=== PATIENT | male | born 1945 | race Hispanic/Latino ===

== ENCOUNTER 2020-02-26 08:54 | Inpatient (IN) | payer MEDICARE ==
[~2020-02-26] VITALS: Ht 175.3 cm; Wt 90.9 kg
[~2020-02-26 08:54] MED LIST: ACET1TAB25 PO; ACET325C6 PO; AEC81 PO; ALPR0.5T8 PO; CARB1TAB20 PO; FLUO90CA4 PO; FURO20TA4 PO; LACT10SO9 PO; MEMA10TA55 PO; METF-444 PO; METO50TA18 PO; PANT40TA54 PO; RISP0.5T19 PO; SENN8.6T32 PO; TAMS0.4C32 PO
[2020-02-26 09:25] LABS: BASOPHILS % (AUTO) 0.2 % (0.0-5.0); EOSINOPHILS % (AUTO) 0.2 % (0.0-8.0); HEMATOCRIT 36.5 % (42-54); LYMPHOCYTES % (AUTO) 5.7 % (21.0-51.0); MEAN CORPUSCULAR HEMOGLOBIN 27.9 pg (27.0-33.0); MEAN CORPUSCULAR HGB CONC 35.9 g/dL (32.0-36.0); MEAN CORPUSCULAR VOLUME 77.7 fL (79-99); MONOCYTES % (AUTO) 9.1 % (3.0-13.0); NEUTROPHILS % (AUTO) 84.4 % (40.0-77.0); PLATELET COUNT (AUTO) 219 K/uL (130-400); RED CELL DISTRIBUTION WIDTH 13.2 % (11.0-15.5)
[2020-02-26 09:41] LABS: INR 1.07 (0.85-1.15); PARTIAL THROMBOPLASTIN TIME 30.4 SEC (26.3-35.5); PROTHROMBIN TIME 11.5 SEC (9.6-11.6)
[2020-02-26 09:49] LABS: CREATINE KINASE, TOTAL 97 U/L (21-232); MYOGLOBIN 43 ng/mL (10-92); TROPONIN I < 0.04 ng/mL (0.00-0.06)
[2020-02-26 10:08] LABS: CREATININE 0.9 mg/dL (0.5-1.5); POTASSIUM 4.3 mmol/L (3.5-5.1)
[2020-02-26 10:09] LABS: ALBUMIN 3.5 g/dL (3.5-5.0); BILIRUBIN,TOTAL 0.6 mg/dL (0.2-1.0); TOTAL PROTEIN, SERUM 7.7 g/dL (6.0-8.3)
[2020-02-26 10:12] LABS: CRP QUANTITATIVE 170.5 mg/L (0.00-9.0)
[2020-02-26] MEDS ORDERED: IOHEXOL 350 MG/ML 100ML INFUS..BTL IV ONE (11:32)
[2020-02-26] MEDS ORDERED: ACETAMINOPHEN EXTRA STRENGTH 500 MG TABLET ONE (12:39)
[2020-02-26] MEDS: LEVOFLOXACIN 500 MG/D5W 100 ML 100 ML IV SCH (18:30)
[2020-02-26] MEDS ORDERED: ERGOCALCIFEROL (VITAMIN D2) 50,000 UNIT CAPSULE ONE (18:41)
[2020-02-26] MEDS ORDERED: LEVOFLOXACIN 500 MG/D5W 100 ML 100 ML ONE (18:48)
[2020-02-26] MEDS ORDERED: ERGOCALCIFEROL (VITAMIN D2) 50,000 UNIT CAPSULE PO ONE (20:00)
[2020-02-26] MEDS: DOXYCYCLINE HYCLATE 100 MG TABLET PO SCH (21:00)
[2020-02-26] MEDS: ENOXAPARIN SODIUM 100 MG/1 ML SQ SCH (21:00)
[2020-02-26] MEDS: METHYLPREDNISOLONE SOD SUCC 40MG/ML 1ML IVP SCH (21:00)
[2020-02-26] MEDS ORDERED: DOXYCYCLINE HYCLATE 100 MG TABLET PO ONE (21:43)
[2020-02-26] MEDS ORDERED: ENOXAPARIN SODIUM 100 MG/1 ML SQ ONE (21:43)
[2020-02-26] MEDS ORDERED: METHYLPREDNISOLONE SOD SUCC 40MG/ML 1ML ONE (21:43)
[2020-02-27] MEDS ORDERED: MORPHINE SULFATE 2 MG/ML 1ML SYG ONE ×3 (00:34→23:01)
[2020-02-27 03:53] LABS: BASOPHILS % (AUTO) 0.1 % (0.0-5.0); EOSINOPHILS % (AUTO) 0.2 % (0.0-8.0); HEMATOCRIT 33.7 % (42-54); LYMPHOCYTES % (AUTO) 4.4 % (21.0-51.0); MEAN CORPUSCULAR HEMOGLOBIN 27.6 pg (27.0-33.0); MEAN CORPUSCULAR HGB CONC 35.3 g/dL (32.0-36.0); MEAN CORPUSCULAR VOLUME 78.2 fL (79-99); MONOCYTES % (AUTO) 4.3 % (3.0-13.0); NEUTROPHILS % (AUTO) 90.3 % (40.0-77.0); PLATELET COUNT (AUTO) 198 K/uL (130-400); RED BLOOD CELL COUNT(AUTO) 4.31 MIL/uL (4.50-6.20); RED CELL DISTRIBUTION WIDTH 13.4 % (11.0-15.5); WHITE BLOOD COUNT (AUTO) 10.6 K/uL (4.8-10.8)
[2020-02-27 04:07] LABS: ALBUMIN 3.1 g/dL (3.5-5.0); BILIRUBIN,TOTAL 0.7 mg/dL (0.2-1.0); CREATININE 0.8 mg/dL (0.5-1.5); TOTAL PROTEIN, SERUM 7.2 g/dL (6.0-8.3)
[2020-02-27] MEDS ORDERED: NITROGLYCERIN 0.4 MG SL TAB SL PRN (04:15)
[2020-02-27] MEDS ORDERED: METHYLPREDNISOLONE SOD SUCC 40MG/ML 1ML ONE ×3 (04:52→21:44)
[2020-02-27 05:51] LABS: CRP QUANTITATIVE 240.5 mg/L (0.00-9.0)
[2020-02-27] MEDS ORDERED: ENOXAPARIN SODIUM 100 MG/1 ML SQ ONE ×2 (09:07→21:43)
[2020-02-27] MEDS ORDERED: DOXYCYCLINE HYCLATE 100 MG TABLET PO ONE ×2 (09:08→21:43)
[2020-02-27] MEDS ORDERED: LISINOPRIL 5 MG TABLET ONE ×2 (09:08→09:09)
[2020-02-27] MEDS ORDERED: HYDROCHLOROTHIAZIDE 25 MG TABLET ONE (09:09)
[2020-02-27] MEDS ORDERED: ZINC SULFATE 220 CAPSULE ONE (09:09)
[2020-02-27] MEDS ORDERED: ASCORBIC ACID 500 MG TAB ONE (09:13)
[2020-02-27] MEDS ORDERED: ACETAMINOPHEN ELIXIR 650 MG/20.3 ML UDCUP ONE (09:19)
[2020-02-27] MEDS: ZINC SULFATE 220 CAPSULE PO SCH (12:00)
[2020-02-27] MEDS: SODIUM CHLORIDE 0.9% 1000ML 1,000 ML IV SCH (13:58)
[2020-02-27] MEDS ORDERED: LEVOFLOXACIN 500 MG/D5W 100 ML 100 ML ONE ×2 (18:22→21:43)
[2020-02-27] MEDS: LEVOFLOXACIN 500 MG/D5W 100 ML 100 ML IV SCH (18:30)
[2020-02-27] MEDS: DOXYCYCLINE HYCLATE 100 MG TABLET PO SCH (21:00)
[2020-02-27] MEDS: ENOXAPARIN SODIUM 100 MG/1 ML SQ SCH (21:00)
[2020-02-27] MEDS: METOPROLOL TARTRATE 25 MG TAB PO SCH (21:00)
[2020-02-27] MEDS ORDERED: METOPROLOL TARTRATE 25 MG TAB ONE (21:44)
[2020-02-27 22:00] VITALS: BP 134/81
[2020-02-27] MEDS ORDERED: IOHEXOL-350 75 ML VIAL IV ONE (23:19)
--- NOTE | 2020-02-27 23:40 | NUR ---
TRANSPORT PATIENT TO CT WITH TRANSPORT. PATIENT IN STABLE CONDITION; TRANSPORT WITH OXYGEN AND IV PATENT
[2020-02-28 00:30] VITALS: BP 134/79
[2020-02-28 04:00] VITALS: BP 129/77
[2020-02-28 06:50] LABS: BASOPHILS % (AUTO) 0.1 % (0.0-5.0); EOSINOPHILS % (AUTO) 0.1 % (0.0-8.0); HEMATOCRIT 34.6 % (42-54); LYMPHOCYTES % (AUTO) 3.6 % (21.0-51.0); MEAN CORPUSCULAR HEMOGLOBIN 27.6 pg (27.0-33.0); MEAN CORPUSCULAR HGB CONC 35.3 g/dL (32.0-36.0); MEAN CORPUSCULAR VOLUME 78.3 fL (79-99); MONOCYTES % (AUTO) 8.7 % (3.0-13.0); NEUTROPHILS % (AUTO) 86.7 % (40.0-77.0); PLATELET COUNT (AUTO) 271 K/uL (130-400); RED BLOOD CELL COUNT(AUTO) 4.42 MIL/uL (4.50-6.20); RED CELL DISTRIBUTION WIDTH 13.5 % (11.0-15.5); WHITE BLOOD COUNT (AUTO) 15.5 K/uL (4.8-10.8)
[2020-02-28 07:03] LABS: ALBUMIN 3.1 g/dL (3.5-5.0); BILIRUBIN,TOTAL 0.6 mg/dL (0.2-1.0); CREATININE 0.8 mg/dL (0.5-1.5); CRP QUANTITATIVE 123.4 mg/L (0.00-9.0); POTASSIUM 3.9 mmol/L (3.5-5.1); TOTAL PROTEIN, SERUM 7.2 g/dL (6.0-8.3)
[2020-02-28 07:31] VITALS: BP 144/92
[2020-02-28] MEDS: ENOXAPARIN SODIUM 100 MG/1 ML SQ SCH ×2 (09:00→20:36)
[2020-02-28] MEDS: ASCORBIC ACID 500 MG TAB PO SCH ×2 (09:00→09:32)
[2020-02-28] MEDS: DOXYCYCLINE HYCLATE 100 MG TABLET PO SCH ×2 (09:31→20:37)
[2020-02-28] MEDS: METOPROLOL TARTRATE 25 MG TAB PO SCH ×2 (09:31→20:37)
[2020-02-28] MEDS: ASPIRIN 81MG TAB.CHEW PO SCH (09:32)
[2020-02-28] MEDS: METHYLPREDNISOLONE SOD SUCC 40MG/ML 1ML IVP SCH ×4 (09:32→20:37)
[2020-02-28] MEDS: MORPHINE SULFATE 2 MG/ML 1ML SYG IV PRN ×2 (09:32→14:40)
[2020-02-28] MEDS: SODIUM CHLORIDE 0.9% 1000ML 1,000 ML IV SCH ×2 (09:58→19:58)
[2020-02-28 10:45] VITALS: BP 136/82
[2020-02-28 12:18] LABS: INR 1.03 (0.85-1.15); PARTIAL THROMBOPLASTIN TIME 32.7 SEC (26.3-35.5); PROTHROMBIN TIME 11.1 SEC (9.6-11.6)
[2020-02-28] MEDS: ZINC SULFATE 220 CAPSULE PO SCH (14:39)
[2020-02-28 16:02] VITALS: BP 140/78
--- NOTE | 2020-02-28 16:32 | NUR ---
CM NOTE/IA UNABLE TO MEET WITH PATIENT, NEXT OF KIN CALLED, JIN KENNEDY. PER SPOUSE, PATIENT LIVES WITH HER, IS SEMI INDEPENDENT WITH ADLS NEEDING HELP WITH BATHING AND DRESSING, HAS USE OF WALKER, MEDICAL POWER OF RN FORENSIC IS SON, EMETERIO KENNEDY JR AT [phone]. PER SPOUSE, PATIENT WILL NOT RETURN HOME BUT WILL BE STAYING WITH DAUGHTER, DANIEL KENNEDY, AFTER HOSPITALIZATION FOR CARETAKING. DANIEL'S PHYSICAL ADDRESS FOLLOWS: [address] [place] [address]. Addendum: 02/28/20 at 1636 by KRISSY LEBRON RN CM Amended: Links added.
[2020-02-28] MEDS: LEVOFLOXACIN 500 MG/D5W 100 ML 100 ML IV SCH ×2 (18:21→20:37)
[2020-02-28 20:11] VITALS: BP 147/88
--- NOTE | 2020-02-28 23:27 | NUR ---
gave report to KATY watson. patient going to room 305 because doctor deion suspects covid-19.
[2020-02-29] VITALS: BP 148/83
--- NOTE | 2020-02-29 | NUR ---
amalia ca present and transferred patient to [facility].
[2020-02-29 04:00] VITALS: BP 159/89
[2020-02-29 05:29] LABS: BASOPHILS % (AUTO) 0.1 % (0.0-5.0); EOSINOPHILS % (AUTO) 0.1 % (0.0-8.0); HEMATOCRIT 33.5 % (42-54); LYMPHOCYTES % (AUTO) 3.6 % (21.0-51.0); MEAN CORPUSCULAR HEMOGLOBIN 28.1 pg (27.0-33.0); MEAN CORPUSCULAR HGB CONC 35.5 g/dL (32.0-36.0); MEAN CORPUSCULAR VOLUME 79.2 fL (79-99); MONOCYTES % (AUTO) 8.5 % (3.0-13.0); NEUTROPHILS % (AUTO) 86.5 % (40.0-77.0); PLATELET COUNT (AUTO) 279 K/uL (130-400); RED BLOOD CELL COUNT(AUTO) 4.23 MIL/uL (4.50-6.20); RED CELL DISTRIBUTION WIDTH 13.7 % (11.0-15.5); WHITE BLOOD COUNT (AUTO) 13.8 K/uL (4.8-10.8)
[2020-02-29 06:03] LABS: ALANINE AMINOTRANSFERASE 36 U/L (12-78); ASPARTATE AMINOTRANSFERASE 46 U/L (10-37); BILIRUBIN,TOTAL 0.6 mg/dL (0.2-1.0); CARBON DIOXIDE 27 mmol/L (21-32); CHLORIDE 91 mmol/L (101-111); CREATININE 0.7 mg/dL (0.5-1.5); GLOMERULAR FILTR. RATE CALC 117 mL/min (>60); GLUCOSE,RANDOM 175 mg/dL (70-105); LACTATE DEHYDROGENASE 534 U/L (81-234); SODIUM SERUM 127 mmol/L (136-145); TOTAL PROTEIN, SERUM 6.8 g/dL (6.0-8.3); UREA NITROGEN, BLOOD 18 mg/dL (7-18)
[2020-02-29] MEDS: SODIUM CHLORIDE 0.9% 1000ML 1,000 ML IV SCH (06:12)
[2020-02-29 08:00] VITALS: BP 161/86
[2020-02-29] MEDS: ASPIRIN 81MG TAB.CHEW PO SCH (08:49)
[2020-02-29] MEDS: DOXYCYCLINE HYCLATE 100 MG TABLET PO SCH ×2 (08:49→20:53)
[2020-02-29] MEDS: METOPROLOL TARTRATE 25 MG TAB PO SCH ×2 (08:49→20:54)
[2020-02-29] MEDS: ASCORBIC ACID 500 MG TAB PO SCH (08:49)
[2020-02-29] MEDS: ENOXAPARIN SODIUM 100 MG/1 ML SQ SCH ×2 (08:50→20:53)
[2020-02-29] MEDS: METHYLPREDNISOLONE SOD SUCC 40MG/ML 1ML IVP SCH ×3 (08:50→20:52)
[2020-02-29 12:00] VITALS: BP 164/83
[2020-02-29] MEDS: ZINC SULFATE 220 CAPSULE PO SCH (12:00)
[2020-02-29] MEDS ORDERED: HYDRALAZINE HCL 20 MG/ML VIAL IV PRN (13:15)
[2020-02-29 16:00] VITALS: BP 169/88
[2020-02-29] MEDS: LEVOFLOXACIN 500 MG/D5W 100 ML 100 ML IV SCH (17:24)
[2020-02-29] MEDS: MORPHINE SULFATE 2 MG/ML 1ML SYG IV PRN (17:24)
[2020-02-29] MEDS: CARBIDOPA-LEVODOPA 25-100 TAB PO SCH ×2 (17:24→20:54)
[2020-02-29 20:04] VITALS: BP 151/87
[2020-02-29] MEDS: BENZONATATE 100 MG CAPSULE PO PRN (20:53)
[2020-02-29] MEDS: METFORMIN HCL 500 MG TABLET PO SCH (20:54)
[2020-02-29] MEDS ORDERED: FUROSEMIDE 20 MG TABLET PO SCH (21:00)
[2020-03-01 00:04] VITALS: BP 154/80
[2020-03-01] MEDS: MORPHINE SULFATE 2 MG/ML 1ML SYG IV PRN ×5 (00:54→22:57)
[2020-03-01 04:04] VITALS: BP 149/89
[2020-03-01 04:29] LABS: ABG BASE EXCESS 0.4 mmol/L (-2.0-3.0); ABG HCO3 23.6 mmol/L (21.0-28.0); ABG OXYGEN SATURATION 87.9 % (95.0-99.0); ABG PCO2 34 mmHg (35-48)
[2020-03-01] MEDS: BENZONATATE 100 MG CAPSULE PO PRN ×2 (05:48→16:53)
[2020-03-01 06:37] LABS: HEMATOCRIT 35.3 % (42-54); MEAN CORPUSCULAR HEMOGLOBIN 28.1 pg (27.0-33.0); MEAN CORPUSCULAR HGB CONC 35.1 g/dL (32.0-36.0); MEAN CORPUSCULAR VOLUME 79.9 fL (79-99); RED BLOOD CELL COUNT(AUTO) 4.42 MIL/uL (4.50-6.20); RED CELL DISTRIBUTION WIDTH 13.8 % (11.0-15.5); WHITE BLOOD COUNT (AUTO) 15.8 K/uL (4.8-10.8)
--- NOTE | 2020-03-01 07:17 | NUR ---
NOTE 0658 NOTICED PATIENT'S TELEMETRY HR IS 120'S WHERE HE HAD BEEN 90'S TO 100'S. CHECKED IN ON HIM AND HE REPORTS FEELING HE IS DROWNING, LOOKS RESTLESS. BREATHING IS NOT LABORED. RR 24. HAS TO O2 HIGH FLOW 30L 60%. CHECKED HIS O2 SAT 88-89% (HE HAD BEEN 93-97% AND NO SOB BEFORE) POSITIONED HIM ELEVATED HOB, HE WILL NOT LISTEN TO TURN ON HIS SIDE TO HELP HIS BREATHING. TOLD HIM I WOULD CONTACT DOCTOR. 0704 TRIED CALLING RT. NO ANSWER. CONTACTED ANSWERING SERVICE FOR HOSPITALIST MOTHERS HELPER. WHILE AWAITNG CALL BACK. LONNIE Bass RN WAS ABLE TO CONTACT SHEA BURNETT FOR HOSPITALIST. NOTIFIED HER OF PATIENT REPORTING FEELING DROWNING, SATS AND LACTIC ACID OF 3.2 IN LABS THIS AM. ORDERS RECEIVED TO OBTAIN BNP AND ENTERED IN COMPUTER. 0713 PAGED BENCHMARK ONCALL VIA ANSWERING SERVICE ALSO TO NOTIFY OF PATIENT'S CONDITION. 0717 RECEIVED ORDERS FROM SHEA BURNETT TO TRANSFER TO ICU. CONTACTED MONITORING AND EVALUATION ADVISOR CANDELARIO HOUSTON RN ABOUT CHANGE IN PATIENT'S CONDITION AND ORDERS FOR TRANSFER. SAID NO ICU BED AVAILABLE AT THIS TIME. NOTIFIED MASOUD OF THIS.
[2020-03-01 08:00] VITALS: BP 119/73
--- NOTE | 2020-03-01 08:08 | NUR ---
report called to amisha rn of 4rth floor. the room not ready at this point will transfer the patient when room is ready.
[2020-03-01 08:51] LABS: CREATININE 0.8 mg/dL (0.5-1.5); PHOSPHORUS 3.7 mg/dL (2.5-4.9); POTASSIUM 4.1 mmol/L (3.5-5.1)
[2020-03-01 09:40] LABS: ABG BASE EXCESS -2.7 mmol/L (-2.0-3.0); ABG OXYGEN SATURATION 96.7 % (95.0-99.0); ABG PCO2 29 mmHg (35-48)
[2020-03-01] MEDS: METFORMIN HCL 500 MG TABLET PO SCH (10:29)
[2020-03-01] MEDS: TAMSULOSIN HCL 0.4 MG CAP.ER.24H PO SCH (10:30)
[2020-03-01] MEDS: FLUOXETINE HCL 20 MG CAPSULE PO SCH (10:30)
[2020-03-01] MEDS: CARBIDOPA-LEVODOPA 25-100 TAB PO SCH ×4 (10:30→20:49)
[2020-03-01] MEDS: PANTOPRAZOLE SODIUM 40 MG TABLET.DR PO SCH (10:30)
[2020-03-01] MEDS: DOXYCYCLINE HYCLATE 100 MG TABLET PO SCH ×2 (10:30→20:48)
[2020-03-01] MEDS: ASCORBIC ACID 500 MG TAB PO SCH (10:30)
[2020-03-01] MEDS: ASPIRIN 81MG TAB.CHEW PO SCH (10:30)
[2020-03-01] MEDS: METOPROLOL TARTRATE 25 MG TAB PO SCH ×2 (10:31→20:49)
[2020-03-01] MEDS: ENOXAPARIN SODIUM 100 MG/1 ML SQ SCH ×2 (10:34→20:51)
[2020-03-01] MEDS: METHYLPREDNISOLONE SOD SUCC 40MG/ML 1ML IVP SCH ×3 (10:35→20:45)
[2020-03-01 10:38] LABS: CRP QUANTITATIVE 34.5 mg/L (0.00-9.0)
[2020-03-01] MEDS: INSULIN HUMULIN R 100 UNIT/ML 3ML SQ SCH ×3 (11:30→22:06)
[2020-03-01 11:38] VITALS: BP 155/99
[2020-03-01] MEDS: ZINC SULFATE 220 CAPSULE PO SCH (12:00)
[2020-03-01] MEDS: ALPRAZOLAM 0.5 MG TABLET PO PRN ×2 (15:44→21:45)
[2020-03-01 16:00] VITALS: BP 139/91
[2020-03-01 20:04] VITALS: BP 122/83
[2020-03-01] MEDS: LEVOFLOXACIN 500 MG/D5W 100 ML 100 ML IV SCH (21:44)
--- NOTE | 2020-03-01 23:56 | NUR ---
TRANSFER FROM 305 RECEIVED PT IN BED AA,RESPONSIVE, ON HFNC 20LPM,80% FIO2 Addendum: 03/01/20 at 2357 by CHANCE CAIN RN RN Amended: Links added.
[2020-03-02 00:04] VITALS: BP 135/80
[2020-03-02] MEDS: MORPHINE SULFATE 2 MG/ML 1ML SYG IV PRN ×2 (03:58→08:40)
[2020-03-02 04:11] VITALS: BP 106/76
[2020-03-02] MEDS: INSULIN HUMULIN R 100 UNIT/ML 3ML SQ SCH ×4 (06:32→20:33)
[2020-03-02 07:19] VITALS: BP 121/74
[2020-03-02] MEDS: ASCORBIC ACID 500 MG TAB PO SCH (08:38)
[2020-03-02] MEDS: FLUOXETINE HCL 20 MG CAPSULE PO SCH (08:38)
[2020-03-02] MEDS: ASPIRIN 81MG TAB.CHEW PO SCH (08:38)
[2020-03-02] MEDS: METHYLPREDNISOLONE SOD SUCC 40MG/ML 1ML IVP SCH ×3 (08:38→21:58)
[2020-03-02] MEDS: PANTOPRAZOLE SODIUM 40 MG TABLET.DR PO SCH (08:38)
[2020-03-02] MEDS: DOXYCYCLINE HYCLATE 100 MG TABLET PO SCH ×2 (08:38→20:35)
[2020-03-02] MEDS: METOPROLOL TARTRATE 25 MG TAB PO SCH ×2 (08:39→20:35)
[2020-03-02] MEDS: CARBIDOPA-LEVODOPA 25-100 TAB PO SCH ×4 (08:39→20:38)
[2020-03-02] MEDS: TAMSULOSIN HCL 0.4 MG CAP.ER.24H PO SCH (08:39)
[2020-03-02] MEDS: ENOXAPARIN SODIUM 100 MG/1 ML SQ SCH ×2 (08:39→20:38)
[2020-03-02 11:30] VITALS: BP 147/96
[2020-03-02] MEDS: ZINC SULFATE 220 CAPSULE PO SCH (12:11)
--- NOTE | 2020-03-02 13:51 | NUR ---
CM Note: [facility] pending approval CM obtained [facility] for [facility]. Faxed order, clinicals, confirmation received. Pt pending approval. EMS arranged and faxed for today in case, primary nurse to call [facility] once pt ready to DC. Primary nurse aware. CM to cont to follow up.
[2020-03-02] MEDS: MORPHINE SULFATE 15 MG TABLET.SA PO SCH ×2 (13:53→20:37)
[2020-03-02 16:12] VITALS: BP 145/92
[2020-03-02 20:00] VITALS: BP 133/83
[2020-03-02] MEDS: LEVOFLOXACIN 500 MG/D5W 100 ML 100 ML IV SCH (20:45)
[2020-03-02] MEDS: ALPRAZOLAM 0.5 MG TABLET PO PRN (23:45)
[2020-03-03] VITALS (7 sets, daily range): BP systolic 128–152; BP diastolic 69–90
[2020-03-03 04:55] LABS: CREATININE 0.7 mg/dL (0.5-1.5); POTASSIUM 4.7 mmol/L (3.5-5.1)
[2020-03-03] MEDS: METHYLPREDNISOLONE SOD SUCC 40MG/ML 1ML IVP SCH ×3 (05:22→22:57)
[2020-03-03] MEDS: INSULIN HUMULIN R 100 UNIT/ML 3ML SQ SCH ×4 (05:55→21:08)
[2020-03-03] MEDS ORDERED: LACTULOSE 20 GM/30 ML UDCUP ONE (08:40)
[2020-03-03] MEDS: PANTOPRAZOLE SODIUM 40 MG TABLET.DR PO SCH (08:44)
[2020-03-03] MEDS: ASPIRIN 81MG TAB.CHEW PO SCH (08:44)
[2020-03-03] MEDS: MORPHINE SULFATE 15 MG TABLET.SA PO SCH ×2 (08:46→21:09)
[2020-03-03] MEDS: ASCORBIC ACID 500 MG TAB PO SCH (08:46)
[2020-03-03] MEDS: METOPROLOL TARTRATE 25 MG TAB PO SCH ×2 (08:46→21:09)
[2020-03-03] MEDS: DOXYCYCLINE HYCLATE 100 MG TABLET PO SCH ×2 (08:46→21:09)
[2020-03-03] MEDS: TAMSULOSIN HCL 0.4 MG CAP.ER.24H PO SCH (08:48)
[2020-03-03] MEDS: CARBIDOPA-LEVODOPA 25-100 TAB PO SCH ×4 (08:48→21:09)
[2020-03-03] MEDS: FLUOXETINE HCL 20 MG CAPSULE PO SCH (08:48)
[2020-03-03] MEDS: ENOXAPARIN SODIUM 100 MG/1 ML SQ SCH ×2 (08:48→21:11)
--- NOTE | 2020-03-03 09:00 | NUR ---
Faxed Hospice Referral CM requested hospice referral be faxed again as agency reported they never received yesterday. SW faxed twice.
--- NOTE | 2020-03-03 10:40 | NUR ---
Fax Confirmation/Hospice [facility] confirmed recd referral and will request RN to get OOHDNR signed by family on admission. CM made aware.
[2020-03-03] MEDS: ZINC SULFATE 220 CAPSULE PO SCH (12:02)
[2020-03-03] MEDS: MORPHINE SULFATE 2 MG/ML 1ML SYG IV PRN (12:02)
--- NOTE | 2020-03-03 12:11 | NUR ---
Order faxed [facility] faxed order for hospice per KUSH. Laya informed [facility] unable to reach RN; per Laya, she will contact RN and request call to this worker. KUSH made aware.
--- NOTE | 2020-03-03 16:00 | NUR ---
NOTE SPOKE TO MARI KEITH FROM [facility]. HE TOLD ME THAT PATIENT HAD BEEN ACCEPTED BUT DME DELIVERY WOULD HAPPEN LATER TONIGHT AND DID NOT WANT PATIENT BEING TRANSPORTED AT NIGHT. PATIENT CAN GO HOME TOMORROW. FAR OXYGEN DELIVERY IS CONCERNED I TOLD HIM THAT WE HAVE WEINNED PATIENT DOWN TO HIGH FLOW O2 @25L WITH 90% FIO2. HE SAID THEY CAN DO EQUIVALENT AND WILL GET IT SET UP TOMORROW AT HOME WHEN EQUIPMENT DELIVERED. HE HAS KEPT IN TOUCH WITH PATIENT'S FAMILY WELL.
[2020-03-03] MEDS: LEVOFLOXACIN 500 MG/D5W 100 ML 100 ML IV SCH (21:10)
[2020-03-03] MEDS: ALPRAZOLAM 0.5 MG TABLET PO PRN (22:57)
[2020-03-03] MEDS: BENZONATATE 100 MG CAPSULE PO PRN (23:03)
[2020-03-04 03:51] VITALS: BP 144/90
[2020-03-04] MEDS: METHYLPREDNISOLONE SOD SUCC 40MG/ML 1ML IVP SCH ×2 (05:13→14:00)
[2020-03-04 05:32] LABS: BASOPHILS % (AUTO) 0.2 % (0.0-5.0); HEMATOCRIT 36.5 % (42-54); LYMPHOCYTES % (AUTO) 5.3 % (21.0-51.0); MEAN CORPUSCULAR HEMOGLOBIN 27.8 pg (27.0-33.0); MEAN CORPUSCULAR HGB CONC 33.4 g/dL (32.0-36.0); MEAN CORPUSCULAR VOLUME 83.1 fL (79-99); MONOCYTES % (AUTO) 7.4 % (3.0-13.0); NEUTROPHILS % (AUTO) 85.5 % (40.0-77.0); NUCLEATED RED BLOOD CELLS 0.1 % (0.0-0.19); PLATELET COUNT (AUTO) 268 K/uL (130-400); RED BLOOD CELL COUNT(AUTO) 4.39 MIL/uL (4.50-6.20); RED CELL DISTRIBUTION WIDTH 13.9 % (11.0-15.5); WHITE BLOOD COUNT (AUTO) 14.9 K/uL (4.8-10.8)
[2020-03-04] MEDS: INSULIN HUMULIN R 100 UNIT/ML 3ML SQ SCH ×3 (05:40→18:03)
[2020-03-04 05:54] LABS: ALBUMIN 2.9 g/dL (3.5-5.0); BILIRUBIN,TOTAL 0.6 mg/dL (0.2-1.0); CREATININE 0.8 mg/dL (0.5-1.5); POTASSIUM 4.4 mmol/L (3.5-5.1); TOTAL PROTEIN, SERUM 6.2 g/dL (6.0-8.3)
[2020-03-04 08:18] VITALS: BP 143/94
--- NOTE | 2020-03-04 08:46 | NUR ---
DR. JIANG IN TO SEE PT. FROM HIS STANDPOINT, PT. CAN GO HOME.
[2020-03-04] MEDS ORDERED: ACETAMINOPHEN-CODEINE 300/30MG TAB PO PRN (09:45)
[2020-03-04] MEDS: PANTOPRAZOLE SODIUM 40 MG TABLET.DR PO SCH (09:48)
[2020-03-04] MEDS: ASPIRIN 81MG TAB.CHEW PO SCH (09:48)
[2020-03-04] MEDS: ASCORBIC ACID 500 MG TAB PO SCH (09:49)
[2020-03-04] MEDS: DOXYCYCLINE HYCLATE 100 MG TABLET PO SCH (09:49)
[2020-03-04] MEDS: MORPHINE SULFATE 15 MG TABLET.SA PO SCH (09:49)
[2020-03-04] MEDS: MORPHINE SULFATE 2 MG/ML 1ML SYG IV PRN ×2 (09:50→14:01)
[2020-03-04] MEDS: TAMSULOSIN HCL 0.4 MG CAP.ER.24H PO SCH (09:51)
[2020-03-04] MEDS: CARBIDOPA-LEVODOPA 25-100 TAB PO SCH ×3 (09:51→18:03)
[2020-03-04] MEDS: METOPROLOL TARTRATE 25 MG TAB PO SCH (09:51)
[2020-03-04] MEDS: FLUOXETINE HCL 20 MG CAPSULE PO SCH (09:51)
[2020-03-04] MEDS: ENOXAPARIN SODIUM 100 MG/1 ML SQ SCH (09:52)
[2020-03-04 11:25] VITALS: BP 152/91
--- NOTE | 2020-03-04 12:00 | NUR ---
KUSH Note: [facility] approved, pending cpap delivery at home KUSH spoke to [facility] this morning re: pt has acceptance since yesterday, DME delivered late last night. planned dc today. Today Geraldo verbalized son called him and said someone from the hospital told him that pt will be dc'd w/bipap or cpap. CM spoke to RT Louie, verbalized he did not spoke to anyone regarding bipap/cpap at home. KUSH spoke to pt's nurse Tyesha RN, verbalized Dr Leblanc said hospice unable to accommodate high flow, informed MD as per Geraldo yesterday able to accommodate high flow, they will combine [address]. [address] Leblanc, spoke to son afterwards, son verbalized as far as he knows hospice only have up to 10 L on high flow, requested to have pt on cpap. entered order for cpap. Emailed order to [facility]. Spoke to Geraldo informed of son's concerns. As per Geraldo received order and will work on having cpap delivered at home, will call CM or primary nurse once CPAP delivered at home. Pt safe to DC once cpap arrangement done. Primary nurse Tyesha RN and Charge nurse Carline BURNS made aware. CM to cont to follow
[2020-03-04] MEDS: ZINC SULFATE 220 CAPSULE PO SCH (12:40)
--- NOTE | 2020-03-04 16:09 | NUR ---
CM Note: cpap delivered at pt's house CM spoke to [facility]. Verbalized cpap delivered at pt's house. Pt safe to dc via EMS. EMS arranged and faxed for today, primary nurse to call [facility] once pt ready to DC. Primary nurse Tyesha RN and charge nurse Carline RN made aware. CM to cont to follow up.
--- NOTE | 2020-03-04 16:30 | NUR ---
REPORT CALLED IN TO MARI KEITH RN.
[2020-03-04 16:53] VITALS: BP 138/79
--- NOTE | 2020-03-04 18:45 | NUR ---
CALLED SPOUSE TO INFORM HER PT. WAS ON HIS WAY.
--- NOTE | 2020-03-04 18:45 | NUR ---
[facility] TRANSPORT PT. HOME.
== END 2020-03-04 19:00 | disposition hospice, home (50) | DRG 871 ==
LOC: EDH 08:54 → EDHIP 17:59 → 3DH 02-28 00:23 → 3BH 02-28 23:37 → 3DH 03-01 23:11
PROVIDERS: ADMIT Internal Medicine; ATTEND Internal Medicine
DX: A41.9 Sepsis, unspecified organism (principal); J96.01 Acute respiratory failure with hypoxia; J18.9 Pneumonia, unspecified organism; J44.1 Chronic obstructive pulmonary disease with (acute) exacerbation; E22.2 Syndrome of inappropriate secretion of antidiuretic hormone; G93.40 Encephalopathy, unspecified; J44.0 Chronic obstructive pulmonary disease with (acute) lower respiratory infection; I25.10 Atherosclerotic heart disease of native coronary artery without angina pectoris; M19.90 Unspecified osteoarthritis, unspecified site; Z20.828 Contact with and (suspected) exposure to other viral communicable diseases; E11.9 Type 2 diabetes mellitus without complications; E27.8 Other specified disorders of adrenal gland; Z66 Do not resuscitate; E78.5 Hyperlipidemia, unspecified; E87.8 Other disorders of electrolyte and fluid balance, not elsewhere classified; F02.80 Dementia in other diseases classified elsewhere, unspecified severity, without behavioral disturbance, psychotic disturbance, mood disturbance, and anxiety; G30.9 Alzheimer's disease, unspecified; F17.200 Nicotine dependence, unspecified, uncomplicated; G20 Parkinson's disease; I10 Essential (primary) hypertension; R53.81 Other malaise; J84.10 Pulmonary fibrosis, unspecified; I44.7 Left bundle-branch block, unspecified; R59.0 Localized enlarged lymph nodes; K59.00 Constipation, unspecified; R63.1 Polydipsia; Z74.01 Bed confinement status; Z99.3 Dependence on wheelchair; Z85.118 Personal history of other malignant neoplasm of bronchus and lung; Z83.3 Family history of diabetes mellitus; Z82.49 Family history of ischemic heart disease and other diseases of the circulatory system; Z80.8 Family history of malignant neoplasm of other organs or systems
CPT/HCPCS: 36415; 36600; 70450; 71045; 71275; 74178; 80048; 80053; 82378; 82550; 82728; 82803; 82948; 83605; 83615; 83735; 83874; 83880; 84100; 84145; 84484; 85025; 85027; 85378; 85610; 85730; 86140; 86850; 86900; 86901; 87040; 87426; 93005; G0378; J1650; J1815; J1956; J2920; J7030; Q9967; U0003